=== PATIENT | female | born 1950 | race Caucasian/White ===

== ENCOUNTER → 2018-06-09 | Outpatient (CLI) | payer BC ==
[~2018-06-09] MED LIST: REGADENOSON 0.4 MG/5 ML DISP.SYRIN. IV ONE
--- NOTE | 2018-06-09 16:11 | PCVCIMAG ---
APPROVED REPORT Study performed: 06/09/2018 08:50:32 EXAM: Comprehensive 2D, Doppler, and color-flow Echocardiogram Patient Location: Echo lab Room #: 2Status: routine BSA: 1.80 HR: 52 bpmBP: 140/80 mmHg Rhythm: NSR Other Information Study Quality: Good Risk Factors: Cardiac Risk Factors: Hyperlipidemia,Cor Ca+ elevated Indications Chest Pain 2D Dimensions IVSd: 6.60 (7-11mm)LVOT Diam: 19.62 (18-24mm) LVDd: 45.10 mm PWd: 8.32 (7-11mm)Ascending Ao: 30.66 (22-36mm) LVDs: 28.35 (25-40mm) Left Atrium: 36.04 (27-40mm) Aortic Root: 29.01 mm LV Single Plane 4CH: 65.28 % LV Single Plane 2CH: 74.95 % Biplane EF: 70.8 % Volumes Left Atrial Volume (Systole) Single Plane 4CH: 65.49 mLSingle Plane 2CH: 57.33 mL Biplane LA Volume: 65.00 mLLA ESV Index: 36.00 mL/m2 Aortic Valve AoV Peak Jaison.: 1.47 m/s AO Peak Gr.: 8.69 mmHgLVOT Max P.32 mmHg LVOT Max V: 1.04 m/s SALAZAR Vmax: 2.13 cm2 AI Vmax: 4.82 m/s AI [place]: 2.53 m/s2 AI PHT: 551.82 ms Mitral Valve E/A Ratio: 1.1 MV Decel. Time: 167.19 ms MV E Max Jaison.: 0.72 m/s MV A Jaison.: 0.63 m/s IVRT: 72.66 ms TDI E/Lateral E': 7.20E/Medial E': 6.55 Medial E' Jaison.: 0.11 m/s Lateral E' Jaison.: 0.10 m/s Pulmonary Valve PV Peak Jaison.: 0.73 m/sPV Peak Gr.: 2.14 mmHg Pulmonary Vein P Vein S: 0.77 m/sP Vein A: 0.53 m/s P Vein D: 0.58 m/sP Vein A Dur.: 138.4 msec P Vein S/D Ratio: 1.33 Tricuspid Valve TR Peak Jaison.: 2.58 m/s TR Peak Gr.: 26.67 mmHg TV Vmax: 0.73 m/sPA Pressure: 34.00 mmHg Left Ventricle The left ventricle is normal size. There is normal LV segmental wall motion. There is normal left ventricular wall thickness. Left ventricular systolic function is normal. The left ventricular ejection fraction is within the normal range. LVEF is 65-70%. The left ventricular diastolic function is normal. Right Ventricle The right ventricle is normal size. The right ventricular systolic function is normal. Atria Left atrium is borderline dilated. Right atrium is borderline dilated. Aortic Valve Aortic valve is trileaflet, mildly sclerotic Mild aortic regurgitation. There is no aortic valvular stenosis. Mitral Valve The mitral valve is normal in structure. Mild mitral valve regurgitation No evidence of mitral valve stenosis. Tricuspid Valve The tricuspid valve is normal in structure. Mild tricuspid regurgitation with a PA pressure of 34 mmHg. Pulmonic Valve The pulmonary valve is normal in structure. There is no pulmonic valvular regurgitation. Great Vessels The aortic root is normal in size. The ascending aorta is normal in size. Aortic arch is normal in caliber. IVC is normal in size and collapses >50% with inspiration. Pericardium There is no pericardial effusion. There is no pleural effusion. <Conclusion> Left ventricular systolic function is normal. There is normal LV segmental wall motion. LVEF is 65-70%. Normal diastolic function Both atria are borderline dilated. Aortic valve is trileaflet, mildly sclerotic, no stenosis. Mild aortic regurgitation. The mitral valve is normal in structure. Mild mitral valve regurgitation Mild tricuspid regurgitation with a pulmonary artery pressure of 34 mmHg. There is no pericardial effusion.
--- NOTE | 2018-06-10 01:26 | PCVCIMAG ---
APPROVED REPORT Imaging Protocol: Rest Tc-99m/Stress Tc-99m 1 day Study performed: 06/09/2018 09:38:00 Indication: Chest discomfort, Palpitations Patient Location: Out-Patient Stress Nurse: Roxy Wall RN, Kamilah Walsh RN [place] Tech:Arpita Lozano [facility] Ht: 5 ft 6 in Wt: 157 lbs BSA: 1.80 m2 HR: 49 bpm BP: 154/71 mmHg BMI: 25.33 Rhythm: Sinus Bradycardia Medical History Medical History: Hyperlipidemia, Former Smoker Medications: Atorvastatin, Zetia, HCTZ, Toprol XL Allergies: Sulfa, Sinvisc Cardiac Risk Factors: Age Pretest Chest Pain Characteristics: No chest pain Exercise History: Physically active Meds Held (24 hrs): Toprol XL Resting Data Rest SPECT myocardial perfusion imaging was performed in supine position 45 minutes following the intravenous injection of 9.6 mCi of Tc-99m Sestamibi. Time of rest injection: 0850 Date: 06/09/2018 Administration Route: IV Administration Site: Right AC Pharmacologic Stress Pharmacologic stress test was performed by injecting Regadenoson 0.4 mg IV push over 10-15 seconds immediately followed by the intravenous injection of mCi of Tc-99m Sestamibi. Time of stress injection: 1020 Date: 06/09/2018 Administration Route: IV Administration Site: Right AC Gated Stress SPECT was performed 45 minutes after stress injection. The images were gated to evaluate regional wall motion and calculate left ventricular ejection fraction. Stress Test Details Stress Test: Pharmacologic stress testing performed using 0.4 mg of regadenoson per 5 mL given IV over 10 seconds. Reason for pharmacologic stress test: knee issues. HRMax Heart Rate (APMHR): 153 bpm Resting HR: 49 bpmTarget HR (85% APMHR): 130 bpm Max HR Achieved: 76 bpm % of APMHR: 49 Recovery HR: 72 bpm BP Resting BP: 154/71 mmHg Max BP: 156/74 mmHg Recovery BP: 120/59 mmHg ECG Resting ECG: Sinus Bradycardia Stress ECG: Sinus Rhythm Recovery ECG: Sinus Rhythm Clinical Reason for Termination: Completed protocol Stress Symptoms: Dyspnea Exercise duration: 0 min 55 sec Symptoms resolved with caffeine. Stress ECG Conclusion 1. Subjectively negative for ischemia 2. Electrocardiographically negative for ischemia Study Data Post stress, the left ventricular ejection was 73%.. SSS: 0 SRS: 0 SDS: 0 TID = 1.12. Perfusion There is a medium area of moderately reduced uptake in the mid and apical segment of the anterior wall which is seen on the stress images and improves on the resting images. This area thickens and moves normally and is most consistent with ischemia. Wall Motion Normal left ventricular wall motion. Nuclear Conclusion ECG Findings: non-diagnostic Clinical Findings: equivocal Nuclear Findings: positive for ischemia Exercise Capacity: not assessed Left Ventricular Function: normal 1. High risk study <Conclusion> 1. Subjectively negative for ischemia 2. Electrocardiographically negative for ischemia
== END | disposition home or self-care (01) ==
LOC: PCVCIMAG 08:36
PROVIDERS: ATTEND Internal Medicine
DX: I08.3 Combined rheumatic disorders of mitral, aortic and tricuspid valves (principal); R07.9 Chest pain, unspecified; R93.1 Abnormal findings on diagnostic imaging of heart and coronary circulation; R00.2 Palpitations; E78.5 Hyperlipidemia, unspecified; Z87.891 Personal history of nicotine dependence
CPT/HCPCS: 78452; 93017; 93306; A9500; J2785